=== PATIENT | male | born 2000 | race Caucasian/White ===

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

== ENCOUNTER 2018-06-20 17:53 | Emergency (ER) | payer OTHER ==
[2018-06-20] MEDS ORDERED: TDAP ADULT 0.5 ML INJ (BOOSTRIX) IM ONE ×2 (19:09→21:26)
--- NOTE | 2018-06-20 19:22 | EDPHY ---
General Time Seen by Provider: 06/20/18 18:57 Narrative: CLINICAL IMPRESSION: Left hand laceration ASSESSMENT/PLAN: 17-year-old [id number] male presents to the emergency department with a 4 cm laceration to the palmar surface of the left hand sustained after he grabbed a branch while slipping on the ice hiking today. No clinical evidence of flexor tendon injury, neurovascular compromise, compartment syndrome, or foreign body. X-ray show no evidence of fracture or foreign body. Wound was thoroughly irrigated with 2 L normal saline and explored by myself. Sutures placed, antibiotics initiated given reports of dirt and debris in the wound and tetanus was updated. Wound care discussed, signs and symptoms of infection reviewed, warning signs outlined in discharge DIFFERENTIAL DIAGNOSIS: includes but not limited to laceration of tendon or vascular structure, underlying fracture, laceration with retained FB ED PROCEDURES: Laceration Repair Verbal consent obtained by patient. Risks discussed, including but not limited to infection, pain, retained foreign body, need for additional repair, poor cosmetic result, tendon damage, nerve damage, poor wound healing, vascular damage. Alternatives to repair discussed. Keeling protocol used to establish correct patient, procedure, equipment, sales support assistant, and site. Anesthesia obtained by LOCAL INFILTRATION. Anesthetized with 0.5 PER SENT BUPIVACAINE WITH EPI. Laceration location left palm, length 4 cm, depth 4 mm, Repair type simple. Patient was prepped and draped in usual sterile fashion. Hemostasis achieved with direct pressure. Wound explored through full range of motion and entire depth of wound probed and visualized with gloved finger. No suspicion for nerve damage, tendon damage, underlying fracture, vascular damage, foreign body, or contamination. Area was cleansed with Shur-Clens and irrigated with sterile saline as per protocol. No foreign body or material removed. Repair method 4 0 Prolene simple interrupted sutures. Eight sutures placed. Well aligned, closely approximated. wound was dressed with bacitracin and dressing. Patient tolerated well with no immediate complications. Wound care: Clean and dry x 24 hours, gently clean with soap and water, cover with topical antibiotic ointment/bandage. Suture/Staple removal: 10-14 Days CHIEF COMPLAINT: Laceration HPI: 17-year-old otherwise healthy right-hand dominant [employer] student presents to the emergency department with a left palmar hand laceration sustained when he grabbed a broken branch while hiking [place] [employer] and slipped on the ice. Patient reports he did pull a large sliver of wood out of the wound. He reports no loss of sensation to the hand, fingers or thumb. Full range of motion of all digits and wrist. Unsure of his tetanus status. No other injuries. PAST MEDICAL HISTORY: None reported Pertinent Past Surgical History: None reported Social History: Unsure of tetanus status REVIEW OF SYSTEMS: All other systems negative Constitutional: No fever, no chills Musculoskeletal: No deformity, no joint pain Skin: 3.5 cm linear laceration to the palm of the left hand Neurological: No sensory loss or weakness, 2 point discrimination intact. PHYSICAL EXAM: General Appearance: Alert, oriented, appropriate for age, cooperative, NAD, well hydrated, non-toxic appearing, VSS, no hypoxia. Neurological: Alert and oriented x 3 Skin: 3.5 cm laceration to the palm of the left hand. Musculoskeletal: Intact flexion and extension of all fingers and thumb, intact flexion and extension of the wrist. Distal 2 point discrimination intact. No evidence of flexor tendon injury. MEDICAL DECISION MAKING: Patient was seen independently. Secondary supervising physician at time of evaluation was Dr. Ron. Diagnosis: Left hand laceration . New, requires workup Summary: See assessment and plan for summary of ED visit Independent visualization of images, tracing, or specimens yes. Patient Progress stable. - Diagnostics Imaging Results: Imaging Impressions Hand X-Ray 06/20/18 19:08 Impression: No evidence for acute osseous abnormality left hand. - History Smoking Status: Never smoked - Objective Vital Signs: Initial Vital Signs Temperature (C) 36.6 C 06/20/18 17:59 Heart Rate 96 06/20/18 17:59 Respiratory Rate 16 06/20/18 17:59 Blood Pressure 166/73 H 06/20/18 17:59 O2 Sat (%) 97 06/20/18 17:59 O2 Delivery Mode Room Air Allergies/Adverse Reactions: Penicillins Allergy (Verified 06/20/18 18:01) Home Medications: Medication Instructions Recorded Cephalexin [Keflex] 500 mg PO QID #28 cap 06/20/18 Medications Given: Discontinued Medications Diphtheria/Tetanus/Acell Pertussis (Boostrix) 0.5 ml IM .ONCE ONE Stop: 06/20/18 19:10 Last Admin: 06/20/18 21:28 Dose: 0.5 ml Departure - Departure Disposition: Home, Routine, Self-Care Clinical Impression: Laceration of hand Qualifiers: Encounter type: initial encounter Foreign body presence: without foreign body Laterality: left Qualified Code(s): S61.412A - Laceration without foreign body of left hand, initial encounter Condition: Good Instructions: Laceration (ED) Additional Instructions: DISCHARGE INSTRUCTIONS FROM YOUR DOCTOR Thank you for visiting our emergency department today. You were treated by a physician insurance underwriting assistant today and your case was reviewed with our ED Attending physician. Please keep in mind that discharge from the emergency department does not mean that there is nothing wrong - it simply means that we have not identified an emergency condition that requires further evaluation or treatment in the hospital. You should always plan to follow up with primary care for re- evaluation of your condition in the next 2-3 days. If you have been referred to a specialist, please call as soon as possible (today or tomorrow) to schedule your follow up appointment at the appropriate time. [PLEASE HAVE SUTURES/LUCA REMOVED IN 10-14 DAYS. YOU CAN RETURN TO THE EMERGENCY DEPARTMENT OR YOUR PRIMARY CARE FOR SUTURE/STAPLE REMOVAL. AVOID SUBMERGING SUTURES/LUCA UNDERWATER FOR PROLONGED PERIOD OF TIME UNTIL REMOVED. KEEP WOUND CLEAN AND DRY, COVER WITH ANTIBIOTIC OINTMENT AND BAND-AID. RETURN TO EMERGENCY DEPARTMENT FOR REDNESS, SWELLING, DISCHARGE, WARMTH TO THE SKIN, OR ANY OTHER CONCERNS FOR INFECTION. ] People present with illnesses and injuries in different ways, and it is always possible that we have missed something. You may always return for re-evaluation if symptoms worsen or if they are not improving or if you develop new/different symptoms. Again, thank you for choosing our emergency department. We hope that you feel better. Referrals: NONE *PRIMARY CARE P,. [Primary Care Provider] - As per Instructions [facility] [Clinic] - As per Instructions Stand Alone Forms: School Excuse Prescriptions: Cephalexin [Keflex] 500 mg PO QID #28 cap
[2018-06-20 20:17] VITALS: BP 129/51
== END 2018-06-20 20:17 | disposition home or self-care (01) ==
PROC: 0HQGXZZ Repair Left Hand Skin, External Approach (ICD-10-PCS; principal; 2018-06-20)
DX: S61.412A Laceration without foreign body of left hand, initial encounter (principal); W00.2XXA Other fall from one level to another due to ice and snow, initial encounter; Y93.01 Activity, walking, marching and hiking; Y92.828 Other wilderness area as the place of occurrence of the external cause; Z23 Encounter for immunization

== ENCOUNTER → 2018-07-21 | Outpatient (CLI) | payer OTHER | LOC: FIMAGING 12:20 | DX: J32.2 Chronic ethmoidal sinusitis (principal); J34.2 Deviated nasal septum ==